=== PATIENT | female | born 1985 | race Caucasian/White ===

== ENCOUNTER 2018-03-12 00:24 | Emergency (ER) | payer OTHER ==
[~2018-03-12] VITALS: Ht 162.5 cm; Wt 117.9 kg
--- NOTE | ~2018-03-12 | EKG ---
[place], [place] ELECTROCARDIOGRAM REPORT NAME: TOBY PATEL UNIT #: [id number] ROOM: DOCTOR: EPIPHANY DRAFT REPORT BIRTHDATE: [birth year] [facility] Test Date: 2018-03-12 Test Time: 03:39:02 Pat Name: TOBY PATEL Department: ER Room: 9 Gender: F Denture Packer: Kandy Griffin : 1985 Requested By: ANNA CALLOWAY Order Number: [id number] Reading MD: Bre Garcia MD Measurements Intervals [place] Rate: 78 P: 40 OK: 205 QRS: 32 QRSD: 96 T: 23 QT: 367 QTc: 419 Interpretive Statements Sinus rhythm Borderline prolonged OK interval Electronically Signed On 03-19-2018 23:50:26 PST by Bre Garcia MD CM:[email or web address]:ELECTROCARDIOGRAM REPORT [id number] ANNA PALMER DRAFT REPORT ANNA CALLOWAY DO
--- NOTE | ~2018-03-12 | EKG ---
[place], [place] ELECTROCARDIOGRAM REPORT NAME: TOBY PATEL UNIT #: [id number] ROOM: DOCTOR: EPIPHANY DRAFT REPORT BIRTHDATE: [birth year] [facility] Test Date: 2018-03-12 Test Time: 00:32:42 Pat Name: TOBY PATEL Department: ER Room: 9 Gender: F Hospital Aide: Arleen Callejas : 1985 Requested By: ANNA CALLOWAY Order Number: [id number] Reading MD: Bre Garcia MD Measurements Intervals [place] Rate: 91 P: 8 RI: 191 QRS: 48 QRSD: 92 T: 20 QT: 346 QTc: 426 Interpretive Statements Sinus rhythm Normal ECG Electronically Signed On 03-19-2018 23:50:12 PST by Bre Garcia MD CM:[email or web address]:ELECTROCARDIOGRAM REPORT [id number] ANNA PALMER DRAFT REPORT ANNA CALLOWAY DO
--- NOTE | ~2018-03-12 | EKG ---
[place], [place] ELECTROCARDIOGRAM REPORT NAME: TOBY PATEL UNIT #: [id number] ROOM: DOCTOR: EPIPHANY DRAFT REPORT BIRTHDATE: [birth year] [facility] Test Date: 2018-03-12 Test Time: 04:14:08 Pat Name: TOBY PATEL Department: ER Room: 9 Gender: F Retail Brand Ambassador: Kandy Griffin : 1985 Requested By: ANNA CALLOWAY Order Number: [id number] Reading MD: Bre Garcia MD Measurements Intervals [place] Rate: 69 P: 6 MO: 204 QRS: 25 QRSD: 92 T: 21 QT: 381 QTc: 408 Interpretive Statements Sinus rhythm Borderline prolonged MO interval Electronically Signed On 03-19-2018 23:50:35 PST by Bre Garcia MD CM:[email or web address]:ELECTROCARDIOGRAM REPORT [id number] ANNA PALMER DRAFT REPORT ANNA CALLOWAY DO
[~2018-03-12 00:24] MED LIST: AMOXICILLIN500 MG PO; BACTRIM DS 8001 TA1 PO; BIRTH CONTROL1 EAC1; CELEXA10 MG; CELEXA20 MG PO; DOXYCYCLINE100 M3 PO; ELIMITE5% T; HYDROCODONE BIT1 T11 PO; PREDNICOT10 MG PO; PRENATA CHEWAB1 EACH PO; PROAIR HFA0.09 MG/AC INH; ROBITUSSIN DM 105 ML PO; VICODIN ES 7501 TAB PO; XANAX0.25 MG; XANAX0.25 MG PO; ZOFRAN ODT4 MG SL
[2018-03-12 00:48] LABS: BASO # 0.1 10*3/uL (0.0-0.1); BASO % 0.5 % (0.0-1.0); EOS # 0.3 10*3/uL (0.0-0.4); EOS % 2.4 % (1.0-4.0); HEMATOCRIT 37.1 % (37.0-47.0); HEMOGLOBIN 12.8 g/dl (12.0-16.0); LYMPH # 4.6 10*3/uL (1.3-4.4); LYMPH % 37.7 % (27.0-41.0); MEAN CELL VOLUME 86.7 fl (81.0-99.0); MEAN CORPUSCULAR HGB 29.9 pg (27.0-31.0); MEAN CORPUSCULAR HGB CONC 34.5 g/dl (33.0-37.0); MEAN PLATELET VOLUME 8.5 fl (9.6-12.3); MONO # 0.8 10*3/uL (0.1-1.0); MONO % 6.1 % (3.0-9.0); NEUT # 6.5 10*3/uL (2.3-7.9); PLATELET COUNT AUTOMATED 372 10*3/uL (130-400); RED BLOOD COUNT 4.28 10*6/uL (4.10-5.10); RED CELL DISTRI WIDTH 12.8 % (0-14.5); WHITE BLOOD COUNT 12.2 10*3/uL (4.8-10.8)
[2018-03-12 01:01] LABS: ACT PARTIAL THROMBO TIME 23.7 SECONDS (20.8-31.5); INTERNATIONAL NORM RATIO 0.9 (2.0-3.5)
[2018-03-12 01:06] LABS: ALKALINE PHOSPHATASE 58 U/L (45-117); BUN 13 mg/dl (7-24); CHLORIDE 107 mmol/L (98-107); CREATININE 0.79 mg/dL (0.55-1.02); POTASSIUM 3.6 mmol/L (3.5-5.1); SGOT/AST 16 IU/L (3-35); SGPT/ALT 24 U/L (12-78); SODIUM 139 mmol/L (136-145); TOTAL PROTEIN 6.5 gm/dL (6.4-8.2)
[2018-03-12 01:08] LABS: TROPONIN I < 0.015 ng/ml (<0.045)
== END 2018-03-12 05:05 | disposition short-term general hospital (02) ==
LOC: ED 00:24
PROVIDERS: Emergency Medicine
DX: R09.02 Hypoxemia (principal); R07.1 Chest pain on breathing; G89.29 Other chronic pain; K21.9 Gastro-esophageal reflux disease without esophagitis; Z88.1 Allergy status to other antibiotic agents; Z88.8 Allergy status to other drugs, medicaments and biological substances; Z79.899 Other long term (current) drug therapy; Z90.49 Acquired absence of other specified parts of digestive tract

== ENCOUNTER 2020-05-23 12:03 | Emergency (ER) | payer OTHER ==
[2020-05-23] MEDS ORDERED: PROTONIX40 MG PO (12:20)
[2020-05-23] MEDS ORDERED: VALTREX500 MG PO (12:20)
[2020-05-23] MEDS ORDERED: JUNEL FE 1 MG-1 EACH PO (12:22)
[2020-05-23] MEDS ORDERED: HYDROCODONE-AC1 EAC1 PO (14:24)
[2020-05-23] MEDS ORDERED: CYCLOBENZAPRINE10 MG PO (14:24)
[2020-05-23] MEDS ORDERED: PREDNISONE50 MG PO (14:24)
== END 2020-05-23 14:45 | disposition home or self-care (01) ==
LOC: ED 12:03
DX: S39.012A Strain of muscle, fascia and tendon of lower back, initial encounter (principal); Z88.8 Allergy status to other drugs, medicaments and biological substances; Z79.899 Other long term (current) drug therapy; Z98.890 Other specified postprocedural states; Z88.1 Allergy status to other antibiotic agents; X50.0XXA Overexertion from strenuous movement or load, initial encounter; Y93.89 Activity, other specified; Y92.69 Other specified industrial and construction area as the place of occurrence of the external cause; Y99.0 Civilian activity done for income or pay